=== PATIENT | female | born 1975 | race Two or more races ===

== ENCOUNTER → 2021-04-21 | Outpatient (CLI) | payer OTHER ==
[2021-04-21 13:58] LABS: Basophils # (auto) 0 10 ^3/uL (0-0.2); Basophils % (auto) 0.5 % (0.0-2.0); Eosinophils # (auto) 0.1 10 ^3/uL (0-0.8); Eosinophils % (auto) 2.7 % (0.0-7.0); Hematocrit 33.6 % (36.0-46.0); Hemoglobin 10.6 g/dL (12.2-16.2); Lymphocytes # (auto) 1.8 10 ^3/uL (0.4-5.4); Mean Corpuscular Hemoglobin 22.5 pg (28.0-32.0); Mean Corpuscular Hgb Conc. 31.6 g/dL (32.0-36.0); Mean Corpuscular Volume 71.2 fL (80.0-100.0); Monocytes # (auto) 0.3 10 ^3/uL (0-1.3); Monocytes % (auto) 5.3 % (0.0-12.0); Neutrophils # (auto) 2.7 10 ^3/uL (1.6-8.6); Neutrophils % (auto) 55.5 % (37.0-80.0); Nucleated Red Blood Cells % 0.3 %; Red Blood Cells 4.72 10^6/uL (4.0-5.20); Red Cell Distribution Width 18.4 % (11.8-14.3); White Blood Cell 4.9 10^3/uL (4.4-10.8)
[2021-04-21 14:14] LABS: Urine Bacteria NONE SEEN /hpf (None Seen); Urine Blood Negative /uL (Negative); Urine Specific Gravity 1.018 (1.001-1.035); Urine WBC 1 /hpf (0 - 5)
[2021-04-21 15:00] LABS: Albumin 3.5 g/dL (3.4-5.0); Calcium 8.7 mg/dL (8.5-10.1)
[2021-04-21 15:06] LABS: BUN/Creatinine Ratio 19.7; Bilirubin, Total 0.3 mg/dL (0.2-1.0); Total Protein 8.4 g/dL (6.4-8.2); Uric Acid 2.9 mg/dL (2.6-6.0)
[2021-04-21 15:21] LABS: % Iron Saturation 5.2 % (15-50)
[2021-04-21 15:26] LABS: Free T4 (Free Thyroxine) 1.23 ng/dL (0.89-1.76)
== END | disposition home or self-care (01) ==
LOC: LAB 13:02
PROVIDERS: ATTEND Internal Medicine
DX: M65.20 Calcific tendinitis, unspecified site (principal); M25.50 Pain in unspecified joint; Z86.2 Personal history of diseases of the blood and blood-forming organs and certain disorders involving the immune mechanism
CPT/HCPCS: 36415; 80053; 80061; 81001; 82607; 83540; 83550; 83970; 84439; 84443; 84550; 85025; 85652

== ENCOUNTER → 2021-10-21 | Outpatient (CLI) | payer OTHER ==
[2021-10-21 12:09] LABS: Basophils # (auto) 0 10 ^3/uL (0-0.2); Eosinophils # (auto) 0.1 10 ^3/uL (0-0.8); Mean Corpuscular Volume 66.3 fL (80.0-100.0); Monocytes # (auto) 0.3 10 ^3/uL (0-1.3); White Blood Cell 4.6 10^3/uL (4.4-10.8)
[2021-10-21 12:12] LABS: Basophils % (auto) 0.5 % (0.0-2.0); Eosinophils % (auto) 2.3 % (0.0-7.0); Hematocrit 19.3 % (36.0-46.0); Lymphocytes # (auto) 1.8 10 ^3/uL (0.4-5.4); Lymphocytes % (auto) 38.5 % (10.0-50.0); Mean Corpuscular Hemoglobin 21.3 pg (28.0-32.0); Mean Corpuscular Hgb Conc. 32.1 g/dL (32.0-36.0); Monocytes % (auto) 6.6 % (0.0-12.0); Neutrophils # (auto) 2.4 10 ^3/uL (1.6-8.6); Neutrophils % (auto) 52.1 % (37.0-80.0); Nucleated Red Blood Cells % 0.1 %; Red Blood Cells 2.92 10^6/uL (4.0-5.20); Red Cell Distribution Width 17.7 % (11.8-14.3)
[2021-10-21 12:59] LABS: Follicle Stimulating Hormone 8.2 IU/L (SEE BELOW); Leuteinizing Hormone 3.9 IU/L
[2021-10-21 13:02] LABS: Beta HCG, Quantitative < 1 mlU/mL (1-3); Thyroid Stimulating Hormone 1.55 uIU/mL (0.358-3.74)
[2021-10-21 15:16] LABS: Hemoglobin 6.2 g/dL (12.2-16.2)
== END | disposition home or self-care (01) ==
LOC: LAB 11:42
PROVIDERS: ATTEND Obstetrics & Gynecology
DX: N93.9 Abnormal uterine and vaginal bleeding, unspecified (principal)
CPT/HCPCS: 36415; 82670; 83001; 83002; 84403; 84443; 84702; 85025

== ENCOUNTER 2022-02-21 16:08 | Emergency (ER) | payer OTHER ==
[~2022-02-21] VITALS: Ht 167.6 cm; Wt 111.0 kg
[2022-02-21] MEDS ORDERED: KETOROLAC TROMETH 60MG/2ML VIAL IM ONE (20:45)
[2022-02-21 21:40] VITALS: BP 129/62
== END 2022-02-21 21:41 | disposition home or self-care (01) ==
LOC: ER 16:08
DX: S50.12XA Contusion of left forearm, initial encounter (principal); R07.89 Other chest pain; Z90.49 Acquired absence of other specified parts of digestive tract; Z88.6 Allergy status to analgesic agent; Y08.89XA Assault by other specified means, initial encounter; Y93.89 Activity, other specified; Y92.89 Other specified places as the place of occurrence of the external cause; Y99.8 Other external cause status
CPT/HCPCS: 71045; 73090; 73110; 96372; 99284; J1885

== ENCOUNTER 2022-02-24 20:31 | Emergency (ER) | payer OTHER ==
[~2022-02-24] VITALS: Ht 167.6 cm; Wt 110.9 kg
[2022-02-24 22:30] VITALS: BP 111/59
[2022-02-24] MEDS ORDERED: BACL10TA PO (23:05)
== END 2022-02-24 23:28 | disposition home or self-care (01) ==
LOC: ER 20:31
DX: S63.621A Sprain of interphalangeal joint of right thumb, initial encounter (principal); Z90.49 Acquired absence of other specified parts of digestive tract; Z88.6 Allergy status to analgesic agent; X58.XXXA Exposure to other specified factors, initial encounter; Y93.89 Activity, other specified; Y92.89 Other specified places as the place of occurrence of the external cause; Y99.8 Other external cause status
CPT/HCPCS: 29125; 73130

== ENCOUNTER → 2022-05-12 | Outpatient (CLI) | payer OTHER ==
[~2022-05-12] MED LIST: BACL10TA PO
[2022-05-12 08:39] LABS: Basophils # (auto) 0 10 ^3/uL (0-0.2); Basophils % (auto) 0.5 % (0.0-2.0); Eosinophils # (auto) 0.1 10 ^3/uL (0-0.8); Eosinophils % (auto) 2.4 % (0.0-7.0); Hematocrit 39.3 % (36.0-46.0); Hemoglobin 12.8 g/dL (12.2-16.2); Lymphocytes # (auto) 1.6 10 ^3/uL (0.4-5.4); Lymphocytes % (auto) 27.9 % (10.0-50.0); Mean Corpuscular Hgb Conc. 32.5 g/dL (32.0-36.0); Monocytes # (auto) 0.4 10 ^3/uL (0-1.3); Monocytes % (auto) 6.4 % (0.0-12.0); Neutrophils # (auto) 3.7 10 ^3/uL (1.6-8.6); Neutrophils % (auto) 62.8 % (37.0-80.0); Red Blood Cells 4.73 10^6/uL (4.0-5.20); Red Cell Distribution Width 14.9 % (11.8-14.3); White Blood Cell 5.9 10^3/uL (4.4-10.8)
[2022-05-12 08:48] LABS: Urine Bacteria NONE SEEN /hpf (None Seen); Urine Blood 3+ /uL (Negative); Urine Specific Gravity 1.022 (1.001-1.035); Urine WBC 122 /hpf (0 - 5); Urine WBC Clumps PRESENT /hpf (None Seen)
[2022-05-12 09:09] LABS: Albumin 3.3 g/dL (3.4-5.0); Calcium 8.4 mg/dL (8.5-10.1); Potassium 3.8 mmol/L (3.5-5.1)
[2022-05-12 09:16] LABS: BUN/Creatinine Ratio 26.3; Bilirubin, Total 0.3 mg/dL (0.2-1.0); Total Protein 7.6 g/dL (6.4-8.2)
[2022-05-12 09:19] LABS: Free T4 (Free Thyroxine) 1.13 ng/dL (0.89-1.76); Prolactin 8.49 ng/mL (2.8-29.2)
[2022-05-12 09:20] LABS: % Iron Saturation 9.1 % (15-50); Follicle Stimulating Hormone 5.75 IU/L (SEE BELOW)
[2022-05-12 09:24] LABS: Thyroid Stimulating Hormone 1.18 uIU/mL (0.358-3.74)
== END | disposition home or self-care (01) ==
LOC: LAB 08:24
PROVIDERS: ATTEND Internal Medicine
DX: N92.0 Excessive and frequent menstruation with regular cycle (principal); D64.9 Anemia, unspecified
CPT/HCPCS: 36415; 80053; 80061; 81001; 82607; 83001; 83540; 83550; 83615; 84146; 84439; 84443; 85025

== ENCOUNTER → 2022-07-02 | Day surgery (SDC) | payer OTHER, MEDICAID ==
[2022-06-30 14:36] LABS: Basophils # (auto) 0 10 ^3/uL (0-0.2); Basophils % (auto) 0.5 % (0.0-2.0); Eosinophils # (auto) 0.2 10 ^3/uL (0-0.8); Hemoglobin 11.4 g/dL (12.2-16.2); Monocytes # (auto) 0.4 10 ^3/uL (0-1.3); Red Cell Distribution Width 14.1 % (11.8-14.3)
[2022-06-30 14:37] LABS: Eosinophils % (auto) 3.2 % (0.0-7.0); Hematocrit 34.6 % (36.0-46.0); Lymphocytes # (auto) 1.9 10 ^3/uL (0.4-5.4); Lymphocytes % (auto) 30.1 % (10.0-50.0); Mean Corpuscular Volume 81.8 fL (80.0-100.0); Monocytes % (auto) 5.7 % (0.0-12.0); Neutrophils # (auto) 3.9 10 ^3/uL (1.6-8.6); Neutrophils % (auto) 60.5 % (37.0-80.0); Nucleated Red Blood Cells % 0.2 %; Red Blood Cells 4.24 10^6/uL (4.0-5.20); White Blood Cell 6.4 10^3/uL (4.4-10.8)
[2022-06-30 14:46] LABS: Urine Bacteria FEW /hpf (None Seen); Urine Blood 3+ /uL (Negative); Urine Specific Gravity 1.019 (1.001-1.035); Urine WBC 24 /hpf (0 - 5)
[2022-06-30 14:53] LABS: INR 0.98 (0.9-1.15)
[2022-06-30 15:19] LABS: Albumin 3.2 g/dL (3.4-5.0); BUN/Creatinine Ratio 21.5; Calcium 8.4 mg/dL (8.5-10.1); Potassium 3.8 mmol/L (3.5-5.1)
[2022-06-30 15:21] LABS: Bilirubin, Total 0.3 mg/dL (0.2-1.0); Total Protein 7.6 g/dL (6.4-8.2)
[~2022-07-02] VITALS: Ht 167.6 cm; Wt 99.8 kg
[~2022-07-02] MED LIST changes: -BACL10TA PO; +DexAMETHasone SOD PHOS 10MG/1ML VIAL INJ ONE; +FAMOTIDINE (10MG/ML) 2ML VL IV ONE; +FERR-7 PO; +GLYCOPYRROLATE 0.2 MG/ML 1ML VIAL ONE; +HYDROmorphone HCL 2 MG/ML VL/or syr IV PRN; +IBUP800T27 PO; +KETOROLAC TROMETH 30 MG/ML 1ML VIAL ONE; +LACTATED RINGER'S 1,000 ML IV SCH; +MEPERIDINE HCL (50 MG/ML) 1 ML VIAL ONE; +MIDAZOLAM HCL 2MG/2ML 2ml VIAL (1mg/ml) ONE; +ONDA-144 PO; +ONDANSETRON HCL 4 MG/2 ML VIAL IV PRN; +ONDANSETRON HCL 4 MG/2 ML VIAL ONE; +PROPOFOL 10 MG/ML 20 ML IV ONE; +SUCCINYLCHOLINE CHLORIDE 20 MG/ML 10ML VIAL IV ONE; +ceFAZolin 1GM/50ML 100 ML IV ONE; +fentaNYL CITRATE 100 MCG/2 ML VL ONE
[2022-07-02 09:45] VITALS: BP 110/60
== END | disposition home or self-care (01) ==
LOC: SUR 07:00
PROVIDERS: ATTEND Obstetrics & Gynecology
DX: N93.9 Abnormal uterine and vaginal bleeding, unspecified (principal); E03.9 Hypothyroidism, unspecified; D64.9 Anemia, unspecified; Z88.5 Allergy status to narcotic agent; Z79.1 Long term (current) use of non-steroidal anti-inflammatories (NSAID); Z98.890 Other specified postprocedural states; Z20.822 Contact with and (suspected) exposure to COVID-19
CPT/HCPCS: 36415; 58563; 80053; 81001; 81025; 84702; 85025; 85610; 85730; 86850; 86900; 86901; J0330; J0690; J1100; J1885; J2175; J2250; J2405; J2704; J3010; J3490; U0003

== ENCOUNTER 2024-02-10 15:25 | Emergency (ER) | payer OTHER, MEDICAID ==
[~2024-02-10] VITALS: Ht 167.6 cm; Wt 110.0 kg
[~2024-02-10 15:25] MED LIST changes: -DexAMETHasone SOD PHOS 10MG/1ML VIAL INJ ONE; -FAMOTIDINE (10MG/ML) 2ML VL IV ONE; -GLYCOPYRROLATE 0.2 MG/ML 1ML VIAL ONE; -HYDROmorphone HCL 2 MG/ML VL/or syr IV PRN; +IBUP-1456 PO; -IBUP800T27 PO; -KETOROLAC TROMETH 30 MG/ML 1ML VIAL ONE; -LACTATED RINGER'S 1,000 ML IV SCH; -MEPERIDINE HCL (50 MG/ML) 1 ML VIAL ONE; -MIDAZOLAM HCL 2MG/2ML 2ml VIAL (1mg/ml) ONE; -ONDANSETRON HCL 4 MG/2 ML VIAL IV PRN; -ONDANSETRON HCL 4 MG/2 ML VIAL ONE; -PROPOFOL 10 MG/ML 20 ML IV ONE; -SUCCINYLCHOLINE CHLORIDE 20 MG/ML 10ML VIAL IV ONE; -ceFAZolin 1GM/50ML 100 ML IV ONE; -fentaNYL CITRATE 100 MCG/2 ML VL ONE
[2024-02-10 16:01] VITALS: BP 115/75; PULSE 70; RESP 16; TEMP 98.9; O2SAT 99
[2024-02-10] MEDS: HYDROcodone-ACET 10/325MG TAB PO ONE (16:20)
[2024-02-10] MEDS: KETOROLAC TROMETH 60MG/2ML VIAL IM ONE (16:21)
[2024-02-10] MEDS ORDERED: CYCL-839 PO (16:52)
[2024-02-10] MEDS ORDERED: IBUP-1456 PO (16:52)
== END 2024-02-10 17:09 | disposition home or self-care (01) ==
LOC: ER 15:25
DX: S39.012A Strain of muscle, fascia and tendon of lower back, initial encounter (principal); M43.16 Spondylolisthesis, lumbar region; E03.9 Hypothyroidism, unspecified; Z79.899 Other long term (current) drug therapy; Z90.49 Acquired absence of other specified parts of digestive tract; Z98.890 Other specified postprocedural states; Z88.5 Allergy status to narcotic agent
CPT/HCPCS: 72100; 96372; 99283; J1885

== ENCOUNTER → 2024-07-11 | Outpatient (CLI) | payer OTHER, MEDICAID ==
[~2024-07-11] VITALS: Ht 167.6 cm; Wt 113.4 kg
[~2024-07-11] MED LIST changes: +CYCL-839 PO
[2024-07-11] MEDS: ADENOSINE 95 MG in GIVE UN-DILUTED 0 ML IV ONE (11:40)
--- NOTE | 2024-07-11 16:39 | DVHSR ---
APPROVED REPORT Exam: Nuclear Stress Test Indication: Chest pain BMI: 0 Medical History Allergies: Codeine Stress Test Details Stress Test: Pharmacological stress testing performed using 95 mg of Adenosine HR Resting HR: 50 bpmMax Heart Rate (APMHR): 172.298955 bpm Max HR Achieved: 90 bpmTarget HR (85% APMHR): 146.400975 bpm % of APMHR: 52.33 Recovery HR: 76 bpm BP Resting BP: 113/70 mmHg Recovery BP: 119/69 mmHg ECG Resting ECG: Sinus Rhythm Clinical Reason for Termination: Completed protocol Nurse Comments Recieved pt. from [facility]. A/Ox4 on RA. Connected to vehicle monitor technician, VS stable. PIV flushes well. Re viewed POC. Pt. verbalized understanding of procedure including risks and side effects, agrees for st ress testing. Adenosine stress test performed per protocol. [facility] tech administered Cardiolite. Pt. tolerated wel l. Pt. stable, no change on exam. VS returned to baseline. Transferred to [facility] via wheelchair w/ t ech. Stress ECG Conclusion anterior wall ischemia lvef 69% this could be breast artifact however it is clearly seen with stress, correlate clinically NM EXAM: Myocardial Perfusion REST/STRESS Imaging Protocol: Rest Tc-99m/Stress Tc-99m 1 day Resting Data Rest SPECT myocardial perfusion imaging was performed in supine position 60 minutes following the int ravenous injection of 11.1 mCi of Tc-99m Sestamibi. Time of rest injection: 1030 Date: 07/11/2024 Time of rest imagin Date: 07/11/2024 Administration Route: IV Administration Site: Left AC Pharmacologic Stress Pharmacologic stress test was performed by injecting Regadenoson 0.4 mg IV push followed by the intra venous injection of 33.2 mCi of Tc-99m Sestamibi. Time of stress injection: 1143 Date: 07/11/2024 Time of stress imagin Date: 07/11/2024 Administration Route: IV Administration Site: Left AC The images were gated to evaluate regional wall motion and calculate left ventricular ejection fracti on. Stress only was performed in the Supine position. Nuclear Conclusion Nuclear Findings: positive for ischemia anterior wall ischemia lvef 69% this could be breast artifact however it is clearly seen with stress, correlate clinically
== END | disposition home or self-care (01) ==
LOC: XYW 10:03
PROVIDERS: ATTEND Internal Medicine
DX: I25.9 Chronic ischemic heart disease, unspecified (principal); R07.89 Other chest pain; I49.8 Other specified cardiac arrhythmias; Z88.5 Allergy status to narcotic agent
CPT/HCPCS: 78452; 93017; A9500; J0153

== ENCOUNTER 2024-12-04 11:29 | Outpatient (CLI) | payer OTHER, MEDICAID ==
[2024-12-04] MEDS ORDERED: IOHEXOL 300 MG/ML 100ML BOTTLE IJ ONE (11:38)
[2024-12-04] MEDS ORDERED: BUPIVACAINE HCL 0.25% P/F 10 ML VIAL ONE (11:38)
[2024-12-04] MEDS ORDERED: methylPREDNISolone ACETATE 80 MG/ML VL ONE (11:38)
[2024-12-04] MEDS ORDERED: LIDOCAINE 2%HCL (LOCAL ANESTH.) INJ 10ml MDV ONE (11:39)
--- NOTE | 2024-12-04 12:36 | DVH ---
XY FLUOROGUIDANCE FOR NEEDLE PLAC HISTORY: PERONEAL TENDINITIS COMPARISON: None PROCEDURE: The risks and benefits of the procedure including infection, hemorrhage and technical failure were di scussed with the patient, who agreed to proceed. The patient was positioned supine on the fluoroscopy table. Time out was performed. The left ankle wa s localized using fluoroscopy, and the location on the skin for needle insertion was marked. The veronica on was prepped and draped using routine sterile technique. Approximately 1 cc of lidocaine was inject ed for local anesthesia. A 25 gauge needle was inserted, and intra-articular location was confirmed b y injection of less than 1 cc of iodinated contrast. 1 cc of methylprednisolone (80 mg/cc) and 4 cc o f Bupivacaine (0.25%) and 5 cc of 2% Lidocaine was then injected without complication. Fluoroscopy ti me was 0.4 minutes. DAP 4.79. The patient was informed of the temporary precautions to take following the procedure as well as of t he potential signs and symptoms which may indicate the need to contact physician, and expressed unde rstanding of this discussion. IMPRESSION: Steroid and anesthetic injection of the left ankle joint.
== END 2024-12-04 17:50 | disposition home or self-care (01) ==
LOC: XYW 11:29
PROVIDERS: ATTEND Physician Assistant Medical
DX: M76.72 Peroneal tendinitis, left leg (principal); Z79.899 Other long term (current) drug therapy; Z88.5 Allergy status to narcotic agent
CPT/HCPCS: 20605; 77002; J1010; J2003; J3490; Q9967; 73600

== ENCOUNTER 2025-02-27 07:53 | Day surgery (SDC) | payer OTHER, MEDICAID ==
[2025-02-25 12:31] LABS: Hematocrit 37.9 % (36.0-46.0); Hemoglobin 12.7 g/dL (12.2-16.2); Mean Corpuscular Hemoglobin 28.4 pg (28.0-32.0); Mean Corpuscular Volume 84.8 fL (80.0-100.0); Nucleated Red Blood Cells % 0.0 %
[2025-02-25 12:49] LABS: INR 0.96 (0.9-1.15); Partial Thromboplastin Time 26.5 SEC (24.5-34.5); Prothrombin Time 10.2 sec (9.3-11.8)
[2025-02-25 13:03] LABS: Alanine Aminotransferase 15 U/L (7-40); Albumin 4.2 g/dL (3.2-4.8); Alkaline Phosphatase 64 U/L (46-116); Anion Gap 8 (5-15); BUN/Creatinine Ratio 18.1 (10.0-20.0); Bilirubin, Total 0.6 mg/dL (0.2-1.0); Blood Urea Nitrogen 13 mg/dL (9-23); Calcium 8.8 mg/dL (8.7-10.4); Carbon Dioxide 28 mmol/L (20-31); Chloride 105 mmol/L (98-107); Glucose 93 mg/dL (74-106); Potassium 3.7 mmol/L (3.5-5.1); Sodium 141 mmol/L (136-145); Total Protein 7.6 g/dL (5.7-8.2)
[~2025-02-27] VITALS: Ht 167.6 cm; Wt 113.4 kg
[2025-02-27] VITALS (7 sets, daily range): BP systolic 104–141; BP diastolic 63–74; PULSE 54–66; RESP 16–18; O2SAT 94–98
[~2025-02-27 07:53] MED LIST changes: -CYCL-839 PO; +DICL1GEL59 EX; -FERR-7 PO; +IODIXANOL 320MG/ML 100ML BTL IV ONE; -ONDA-144 PO
[2025-02-27] MEDS ORDERED: fentaNYL CITRATE 100 MCG/2 ML VL ONE (09:21)
[2025-02-27] MEDS ORDERED: ANGIOMAX 250 MG VIAL IV ONE (09:21)
[2025-02-27] MEDS ORDERED: HEPARIN SODIUM (PORCINE) 5000 UNITS/ML 1ML VIAL ONE (09:21)
[2025-02-27] MEDS ORDERED: MIDAZOLAM HCL 2MG/2ML 2ml VIAL (1mg/ml) ONE (09:21)
[2025-02-27] MEDS ORDERED: LIDOCAINE 2%HCL (LOCAL ANESTH.) INJ 20ML MDV ONE (09:22)
[2025-02-27] MEDS ORDERED: VERAPAMIL 2.5MG/ML INJ 2ML VIAL IV ONE (09:22)
[2025-02-27] MEDS ORDERED: SODIUM CHL 0.9% 0 ML ONE (09:22)
--- NOTE | 2025-02-27 10:52 | DVHOP2 ---
Operative Report - 2 Report Details Date: 02/27/25 Preop Diagnosis: CAD Postop Diagnosis: Normal coronaries. Surgeon: Joni Baldwin MD Anesthesiologist: Conscious sedation Anesthesia: Mac, Local Consent: The patient was informed of the risks and benefits of the procedure. These include but are not limited to complications of anesthesia, postoperative infection, incomplete relief of symptoms, recurrence of symptoms, damage to blood vessels, nerves and tendons, deep venous thrombosis, pulmonary embolism and possible need for repeat surgery in the future. Complications: No complications Findings: Normal coronaries. Normal left ventricular function. Indications for Surgery: Chest pain. Abnormal stress test. Name of Procedure Performed Left heart catheterization. Bilateral cine coronary angiography. Left ventriculography. Procedure Details Procedure Details: Prior local anesthesia with 2% lidocaine to the right wrist and full informed consent obtained the patient was prepped and draped in usual fashion. An ultrasound was used to place a catheter into the ulnar artery. There was a madrid nt radial as well however smaller. A six Syriac sheath was placed and a six Syriac multi purpose catheter was used to cannulate both right and left coronary ostia and for ventriculography without complications. Hemodynamics: Aortic blood pressure was 130/70. End-diastolic pressure was five. There was no gradient across the aortic valve on pullback. Coronary anatomy: RCA is large and normal. It is dominant. The PDA in the posterolateral branches are normal. Left main is large and normal. Left anterior descending coronary artery is a large vessel it is normal in its proximal mid and distal segments. Septals and diagonals are free of significant disease. The circumflex is a large vessel with two obtuse marginal branches free of significant disease Ventriculography in the RODRIGUEZ projection shows an EF of 45% with mild global hypokinesis. Impression.: normal left ventricular end-diastolic pressure at rest with mildly decreased left ventricular ejection fraction. Normal coronary arteries. Recommendations: Medical therapy is warranted continue risk factor modification Condition Good Disposition Home Date of Service: Feb 27, 2025 Billing Provider: JONI BALDWIN Sr., MD Cardiology Common Codes: 28184-BPSDPQJ INP/OBS CARE (High) Cardiology Procedure Codes: 15457-QUWP HEART CATH W/INTRA INJ Cardiology Consultation Codes: 43353-CPYOTCKCC CONSULT <35MIN JONI BALDWIN Sr., MD Feb 27, 2025 10:52
== END 2025-02-27 13:18 | disposition home or self-care (01) ==
LOC: CATH 07:53
PROVIDERS: ATTEND Internal Medicine
DX: I25.10 Atherosclerotic heart disease of native coronary artery without angina pectoris (principal); R94.39 Abnormal result of other cardiovascular function study; Z79.899 Other long term (current) drug therapy; Z88.5 Allergy status to narcotic agent
CPT/HCPCS: 36415; 80053; 84702; 85025; 85610; 85730; 93458; C1769; C1887; C1894; J0583; J1644; J2250; J3010; Q9967; 99152; 99153